=== PATIENT | female | born 1985 | race Caucasian/White ===

== ENCOUNTER 2016-11-29 10:49 | Emergency (ER) | payer SELFPAY ==
[2016-11-29] MEDS ORDERED: PREDNISONE 20 MG TABLET PO ONE (11:27)
[2016-11-29] MEDS ORDERED: HYDROXYZINE HCL 10 MG TABLET PO ONE (11:27)
[2016-11-29] MEDS ORDERED: CARBOXYMETHYLCELLULOSE SOD 0.5% 0.4 ML DROPERETTE OU ONE (11:28)
--- NOTE | 2016-11-29 11:37 | ER Document Report ---
ED Skin Rash/Insect Bite/Abscs - General Chief Complaint: Rash Stated Complaint: RASH Time Seen by Provider: 11/29/16 11:12 Mode of Arrival: Ambulatory Information source: Patient Notes: Patient is a 31-year-old female who presents to the ER today for rash to her entire body 3 days. Patient states that she got into some poison oak that she knows of. She admits that the worst part of the rashes on her face but has not included her eyes yet, but that is why she is here today because she is concerned about her eyes getting involved in the rash. She denies any itching or redness to the eyes. She denies any fevers or chills. TRAVEL OUTSIDE OF THE [place] IN LAST 30 DAYS: No - Related Data Allergies/Adverse Reactions: No Known Allergies Allergy (Unverified 11/29/16 10:54) Past Medical History - General Information source: Patient - Social History Smoking Status: Never Smoker Family History: Reviewed & Not Pertinent Renal/ Medical History: Denies: Hx Peritoneal Dialysis Review of Systems - Review of Systems Constitutional: No symptoms reported EENT: No symptoms reported Cardiovascular: No symptoms reported Respiratory: No symptoms reported Gastrointestinal: No symptoms reported Genitourinary: No symptoms reported Female Genitourinary: No symptoms reported Musculoskeletal: No symptoms reported Skin: See HPI Hematologic/Lymphatic: No symptoms reported Neurological/Psychological: No symptoms reported Physical Exam - Vital signs Vitals: Temp Pulse Resp BP Pulse Ox 98.5 F 90 18 129/77 H 98 11/29/16 10:54 11/29/16 10:54 11/29/16 10:54 11/29/16 10:54 11/29/16 10:54 - Notes Notes: PHYSICAL EXAMINATION: GENERAL: Well-appearing and in no acute distress. HEAD: Atraumatic, normocephalic. EYES: Pupils equal round and reactive to light, extraocular movements intact, sclera anicteric, conjunctiva are normal. NECK: Normal range of motion, supple without lymphadenopathy LUNGS: CTAB and equal. No wheezes rales or rhonchi. HEART: Regular rate and rhythm without murmurs EXTREMITIES: Normal range of motion, no pitting edema. No cyanosis. NEUROLOGICAL: Cranial nerves grossly intact. Normal sensory/motor exams. PSYCH: Normal mood, normal affect. SKIN: Warm, Dry, normal turgor, erythematous rash with vesicles, some in linear pattern, noted to the left forearm, inside the umbilicus, right forearm, face excluding the eyes and mouth, some with clear drainage Course - Vital Signs Vital signs: Temp Pulse Resp BP Pulse Ox 98.1 F 80 18 125/75 100 11/29/16 12:01 11/29/16 12:01 11/29/16 12:01 11/29/16 12:01 11/29/16 12:01 Discharge - Discharge Clinical Impression: Poison josé luis dermatitis Condition: Stable Disposition: HOME, SELF-CARE Instructions: Contact Dermatitis ([facility]), Corticosteroid Medication ([facility]) Additional Instructions: Keep your eyes moistened with the eyedrops I have prescribed. Please go to eye doctor that I have referred you to if the rash starts to truly spread to your eyelids and/or eyes and you start to get itching. They are the ones who prescribe steroid eyedrops to treat that. Return immediately for any new or worsening symptoms. Follow up with primary care provider, call tomorrow to make followup appointment. Prescriptions: Dextran 70/Hypromellose [Artificial Tears Eye Drops] 1 drop OU BID #1 bot Hydroxyzine HCl 10 mg PO Q8 PRN #20 tablet PRN Reason: Prednisone 20 mg PO ASDIR #32 tablet Referrals: KIRILL KNAPP DO [ACTIVE STAFF] - Follow up as needed
[2016-11-29 12:03] VITALS: BP 125/75
== END 2016-11-29 12:04 | disposition home or self-care (01) ==
LOC: ER 10:49
DX: L25.5 Unspecified contact dermatitis due to plants, except food (principal)
CPT/HCPCS: 99282; J3490; J7512